=== PATIENT | female | born 1985 | race African-American/Black ===

== ENCOUNTER 2018-02-17 14:57 | Emergency (ER) | payer BC ==
[2018-02-17] MEDS ORDERED: NORMAL SALINE 1000 ML 1,000 ML IV ONE (15:41)
--- NOTE | 2018-02-17 15:41 | ER Document Report ---
ED Medical Screen (RME) - General Chief Complaint: Abdominal Pain Stated Complaint: ABDOMINAL PAIN Time Seen by Provider: 02/17/18 15:25 Notes: Patient is a 32-year-old female that presents to the emergency department for chief complaint of right-sided abdominal pain that started over the weekend. Associated nausea but no vomiting, has had diarrhea. ROS: Other than noted above, the 12 point review of systems was reviewed with the patient and were negative, all pertinent findings are included in the HPI. PHYSICAL EXAMINATION: Vital signs reviewed. GENERAL: Well-appearing, well-nourished and in no acute distress. HEAD: Atraumatic, normocephalic. EYES: Pupils equal round extraocular movements intact, conjunctiva are normal. ENT: Nares patent NECK: Normal range of motion CV: Heart regular rate and rhythm LUNGS: No respiratory distress Musculoskeletal: Normal range of motion NEUROLOGICAL: Normal speech PSYCH: Normal mood, normal affect. MDM: Patient seen and examined for rapid initial assessment. Vital signs reviewed. A comprehensive ED assessment and evaluation of the patient, analysis of test results and completion of the medical decision making process will be conducted by additional ED providers. *Note is created using voice recognition software and may contain spelling, syntax or grammatical errors. COUNTRY TRAVELED TO/FROM: [place] - Related Data Allergies/Adverse Reactions: No Known Allergies Allergy (Unverified 02/17/18 14:59) Past Medical History Renal/ Medical History: Denies: Hx Peritoneal Dialysis Physical Exam - Vital signs Vitals: Temp Pulse Resp BP Pulse Ox 98.2 F 91 16 127/84 H 100 02/17/18 15:03 02/17/18 15:03 02/17/18 15:03 02/17/18 15:03 02/17/18 15:03 Course - Vital Signs Vital signs: Temp Pulse Resp BP Pulse Ox 98.2 F 91 16 127/84 H 100 02/17/18 15:03 02/17/18 15:03 02/17/18 15:03 02/17/18 15:03 02/17/18 15:03
[2018-02-17] MEDS ORDERED: MORPHINE SULFATE 10 MG/ML INJ IV ONE ×2 (15:42→17:01)
[2018-02-17] MEDS ORDERED: ONDANSETRON HCL INJ/PF 4 MG/2 ML SDV IV ONE (15:43)
[2018-02-17 16:43] LABS: ABSOLUTE BASOPHILS # (AUTO) 0.1 10^3/uL (0.0-0.2); ABSOLUTE EOSINOPHILS # (AUTO) 0.6 10^3/uL (0.0-0.6); ABSOLUTE LYMPHOCYTES (AUTO) 2.1 10^3/uL (0.5-4.7); ABSOLUTE MONOCYTES (AUTO) 0.9 10^3/uL (0.1-1.4); ABSOLUTE NEUT (AUTO) 9.3 10^3/uL (1.7-8.2); EOSINOPHILS % (AUTO) 4.5 % (0-6); HEMATOCRIT 33.6 % (36.0-47.0); HEMOGLOBIN 10.5 g/dL (12.0-15.5); LYMPHOCYTES % (AUTO) 16.3 % (13-45); MEAN CORPUSCULAR HEMOGLOBIN 22.6 pg (27.0-33.4); MEAN CORPUSCULAR HGB CONC 31.2 g/dL (32.0-36.0); MEAN CORPUSCULAR VOLUME 73 fl (80-97); MONOCYTES % (AUTO) 7.2 % (3-13); PLATELET COUNT 463 10^3/uL (150-450); RED BLOOD COUNT 4.64 10^6/uL (3.72-5.28); RED CELL DISTRIBUTION WIDTH 16.1 % (11.5-14.0); TOTAL CELLS COUNTED % (AUTO) 100 %; WHITE BLOOD COUNT 13.1 10^3/uL (4.0-10.5)
[2018-02-17 16:47] LABS: APPEARANCE,URINE CLEAR; BILIRUBIN,URINE NEGATIVE (NEGATIVE); COLOR,URINE YELLOW; GLUCOSE, URINE NEGATIVE (NEGATIVE); KETONES,URINE TRACE mg/dL (NEGATIVE); LEUKOCYTE ESTERASE,URINE NEGATIVE (NEGATIVE); NITRITE,URINE NEGATIVE (NEGATIVE); PROTEIN,URINE NEGATIVE (NEGATIVE); URINE SPECIFIC GRAVITY 1.015; UROBILINOGEN,URINE NEGATIVE mg/dL (<2.0)
[2018-02-17 17:00] LABS: ALANINE AMINOTRANSFERASE 25 U/L (9-52); ALBUMIN 4.3 g/dL (3.5-5.0); ALKALINE PHOSPHATASE 107 U/L (38-126); ANION GAP 12 (5-19); ASPARTATE AMINO TRANSFERASE 27 U/L (14-36); BILIRUBIN,DIRECT 0.3 mg/dL (0.0-0.4); BILIRUBIN,TOTAL 0.6 mg/dL (0.2-1.3); BLOOD UREA NITROGEN 8 mg/dL (7-20); CALCIUM 9.7 mg/dL (8.4-10.2); CARBON DIOXIDE 27 mmol/L (22-30); CHLORIDE 100 mmol/L (98-107); GLUCOSE 83 mg/dL (75-110); LIPASE 31.6 U/L (23-300); POTASSIUM 4.2 mmol/L (3.6-5.0); SODIUM 139.1 mmol/L (137-145); TOTAL PROTEIN 7.5 g/dL (6.3-8.2)
--- NOTE | 2018-02-17 17:06 | ER Document Report ---
ED GI/ - General Chief Complaint: Abdominal Pain Stated Complaint: ABDOMINAL PAIN Time Seen by Provider: 02/17/18 15:25 Mode of Arrival: Ambulatory Information source: Patient Notes: Patient presents complaining of abdominal pain for the past 3 days. Patient does report diarrhea 2 days ago but none since then. Patient denies any fever nausea or vomiting. Patient denies any urinary symptoms. COUNTRY TRAVELED TO/FROM: [facility] Patient complains to provider of: Abdominal pain. No: Diarrhea, Vomiting Onset: Other - 3 days Timing/Duration: Persistent Quality of pain: Achy Pain Level: 3 Location: RUQ, Other - Umbilical Vaginal bleeding (Compared to normal period): None Associated symptoms: denies: Constipation, Diarrhea, Loss of appetite, Nausea, Urinary hesitancy, Urinary frequency, Urinary retention, Urinary urgency, Vaginal discharge, Vomiting Exacerbated by: Denies Relieved by: Denies Similar symptoms previously: No Recently seen / treated by doctor: No - Related Data Allergies/Adverse Reactions: No Known Allergies Allergy (Unverified 02/17/18 14:59) Past Medical History - General Information source: Patient - Social History Smoking Status: Current Every Day Smoker Smoking Education Provided: Yes Frequency of alcohol use: None Drug Abuse: None 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 denies: Fever, Recent illness EENT: No symptoms reported Cardiovascular: No symptoms reported. denies: Chest pain Respiratory: No symptoms reported. denies: Cough, Short of breath Gastrointestinal: Abdominal pain. denies: Diarrhea, Nausea, Constipation, Blood streaked bowels, Poor appetite Genitourinary: No symptoms reported. denies: Dysuria, Flank pain Female Genitourinary: No symptoms reported. denies: , Vaginal discharge , Vaginal bleeding Musculoskeletal: No symptoms reported. denies: Back pain Skin: No symptoms reported Hematologic/Lymphatic: No symptoms reported Neurological/Psychological: No symptoms reported Physical Exam - Vital signs Vitals: Temp Pulse Resp BP Pulse Ox 98.2 F 91 16 127/84 H 100 02/17/18 15:03 02/17/18 15:03 02/17/18 15:03 02/17/18 15:03 02/17/18 15:03 - General General appearance: Appears well, Alert In distress: None - HEENT Head: Normocephalic, Atraumatic Eyes: Normal Conjunctiva: Normal Nasal: Normal Mouth/Lips: Normal Mucous membranes: Normal Neck: Normal, Supple. No: Lymphadenopathy - Respiratory Respiratory status: No respiratory distress Chest status: Nontender Breath sounds: Normal Chest palpation: Normal - Cardiovascular Rhythm: Regular Heart sounds: S1 appreciated, S2 appreciated Murmur: No - Abdominal Inspection: Other - umbilical hernia Bowel sounds: Normal Tenderness: Tender - umilical area, RUQ, suprapubic area, Guarding Organomegaly: No organomegaly - Back Back: Normal, Nontender. No: CVA tenderness - Extremities General upper extremity: Normal inspection, Normal ROM General lower extremity: Normal inspection, Normal ROM - Neurological Neuro grossly intact: Yes Cognition: Normal Claudia Coma Scale Eye Opening: Spontaneous [place] Coma Scale Verbal: Oriented [place] Coma Scale Motor: Obeys Commands Claudia Coma Scale Total: 15 - Psychological Associated symptoms: Normal affect, Normal mood - Skin Skin Temperature: Warm Skin Moisture: Dry Skin Color: Normal Course - Re-evaluation Re-evalutation: 02/17/18 19:[address] report findings. Patient states that she has a known massive tissue to the upper abdomen that she has known about in the past and states that this is likely attributed to a repaired hernia that she had as a child. Patient states that the doctor did notice this mass of tissue when she was and that she had ultrasound imaging performed of this area. - Vital Signs Vital signs: Temp Pulse Resp BP Pulse Ox 99.0 F 84 16 112/68 100 02/17/18 21:34 02/17/18 21:34 02/17/18 15:03 02/17/18 21:34 02/17/18 21:34 - Laboratory Result Diagrams: 02/17/18 16:25 02/17/18 16:25 Laboratory results interpreted by me: 02/17/18 02/17/18 16:25 16:25 WBC 13.1 H Hgb 10.5 L Hct 33.6 L MCV 73 L MCH 22.6 L MCHC 31.2 L RDW 16.1 H Plt Count 463 H Absolute Neutrophils 9.3 H Urine Ketones TRACE H 02/17/18 21:24 Labs- Entire Visit 02/17/18 02/17/18 02/17/18 16:25 16:25 16:25 WBC 13.1 H RBC 4.64 Hgb 10.5 L Hct 33.6 L MCV 73 L MCH 22.6 L MCHC 31.2 L RDW 16.1 H Plt Count 463 H Seg Neutrophils % 71.0 Lymphocytes % 16.3 Monocytes % 7.2 Eosinophils % 4.5 Basophils % 1.0 Absolute Neutrophils 9.3 H Absolute Lymphocytes 2.1 Absolute Monocytes 0.9 Absolute Eosinophils 0.6 Absolute Basophils 0.1 Sodium 139.1 Potassium 4.2 Chloride 100 Carbon Dioxide 27 Anion Gap 12 BUN 8 Creatinine 0.78 Est GFR ( Amer) > 60 Est GFR (Non-Af Amer) > 60 Glucose 83 Calcium 9.7 Total Bilirubin 0.6 Direct Bilirubin 0.3 Neonat Total Bilirubin Not Reportable Neonat Direct Bilirubin Not Reportable Neonat Indirect Bili Not Reportable AST 27 ALT 25 Alkaline Phosphatase 107 Total Protein 7.5 Albumin 4.3 Lipase 31.6 Urine Color YELLOW Urine Appearance CLEAR Urine pH 5.0 Ur Specific [place] 1.015 Urine Protein NEGATIVE Urine Glucose (UA) NEGATIVE Urine Ketones TRACE H Urine Blood NEGATIVE Urine Nitrite NEGATIVE Urine Bilirubin NEGATIVE Urine Urobilinogen NEGATIVE Ur Leukocyte Esterase NEGATIVE Urine WBC (Auto) 1 Urine RBC (Auto) 1 Squamous Epi Cells Auto 1 Urine Mucus (Auto) FEW Urine Ascorbic Acid NEGATIVE Urine HCG, Qual NEGATIVE - Diagnostic Test Radiology reviewed: Reports reviewed Discharge - Discharge Clinical Impression: Colitis Abdominal pain Qualifiers: Abdominal location: unspecified location Qualified Code(s): R10.9 - Unspecified abdominal pain Uterine fibroid Qualifiers: Uterine leiomyoma location: unspecified location Qualified Code(s): D25.9 - Leiomyoma of uterus, unspecified Condition: Stable Disposition: HOME, SELF-CARE Instructions: Abdominal Pain ([facility]), Ciprofloxacin ([facility]), Colitis, Nonspecific ( [facility]), Growth or Mass, Pending Workup ([facility]), Metronidazole ([facility]) Additional Instructions: Return immediately for any new or worsening symptoms Followup with your primary care provider, call tomorrow to make a followup appointment Follow-up with a general surgeon for further evaluation of possible mass to abdomen Return for any increased pain, fever, vomiting, blood in stool or any other concerning symptoms Prescriptions: Ciprofloxacin HCl [Cipro 500 mg Tablet] 500 mg PO BID #20 tablet Metronidazole [Flagyl 500 mg Tablet] 500 mg PO TID #30 tablet Forms: Smoking Cessation Education, Return to Work Referrals: [facility] [Provider Group] - Follow up tomorrow
--- NOTE | 2018-02-17 18:02 | RADIOLOGY REPORT (SQ) ---
EXAM DESCRIPTION: CT ABD/PELVIS WITH IV ONLY COMPLETED DATE/TIME: 02/17/2018 5:25 pm REASON FOR STUDY: right sided abdominal pain COMPARISON: None. TECHNIQUE: CT scan of the abdomen and pelvis performed using helical scanning technique with dynamic intravenous contrast injection. No oral contrast. Images reviewed with lung, soft tissue, and bone windows. Reconstructed coronal and sagittal MPR images reviewed. Delayed images for evaluation of the urinary system also acquired. All images stored on PACS. All CT scanners at this facility use dose modulation, iterative reconstruction, and/or weight based d osing when appropriate to reduce radiation dose to as low as reasonably achievable (ALARA). [facility]: Dose Right [facility]: CareDose [facility]: Dose Right [facility]: Teradose 4D [facility]: Metaforic CONTRAST TYPE AND DOSE: contrast/concentration: Isovue 350.00 mg/ml; Total Contrast Delivered: 83.0 ml; Total Saline Delivered: 68.0 ml RENAL FUNCTION: None required. The patient is less than 50 years old. RADIATION DOSE: CT Rad equipment meets quality standard of care and radiation dose reduction techniq ues were employed. CTDIvol: 8.3 - 11.8 mGy. DLP: 1098 mGy-cm.. LIMITATIONS: None. FINDINGS: LOWER CHEST: No significant findings. No nodules or infiltrates. LIVER: Normal size. No masses. No dilated ducts. SPLEEN: Normal size. No focal lesions. PANCREAS: No masses. No significant calcifications. No adjacent inflammation or peripancreatic fluid collections. Pancreatic duct not dilated. GALLBLADDER: Status post cholecystectomy ADRENAL GLANDS: No significant masses or asymmetry. RIGHT KIDNEY AND URETER: No solid masses. No significant calcifications. No hydronephrosis or hyd roureter. LEFT KIDNEY AND URETER: No solid masses. No significant calcifications. No hydronephrosis or hydr oureter. AORTA AND VESSELS: No aneurysm. No dissection. Renal arteries, SMA, celiac without stenosis. RETROPERITONEUM: No retroperitoneal adenopathy, hemorrhage or masses. BOWEL AND PERITONEAL CAVITY: There is thickening of the aguilar of a short segment of proximal transver se colon with associated edematous or inflammatory changes in the adjacent mesenteric fat. The appea franky is most consistent with a focal colitis. Follow-up is recommended to exclude an underlying mas s. APPENDIX: Normal. PELVIS: There is a 4.7 x 3.1 cm in diameter mass inseparable from the uterus on the left. This could represent a uterine mass such as a fibroid or could be ovarian in etiology. Clinical correlation is recommended. Pelvic ultrasound may be of value for further evaluation. No free fluid. Normal bladd er. ABDOMINAL WALL: No masses. No hernias. BONES: No significant or acute findings. OTHER: No other significant finding. IMPRESSION: Findings consistent with colitis involving a short segment of transverse colon as noted above. Follow-up is recommended to exclude an underlying mass. Mass lesion inseparable from the [place] as noted above which could be uterine or ovarian in etiology. Pelvic ultrasound may be of value for further evaluation. Other findings as noted above TECHNICAL DOCUMENTATION: JOB ID: [id number] Quality ID # [id number]: Final reports with documentation of one or more dose reduction techniques (e.g., Au tomated exposure control, adjustment of the mA and/or kV according to patient size, use of iterative reconstruction technique) 2010 [employer]- All Rights Reserved Reading location - IP/workstation name: [email or web address]
[2018-02-17] MEDS ORDERED: METRONIDAZOLE 500 MG TABLET PO ONE (18:40)
[2018-02-17] MEDS ORDERED: CIPROFLOXACIN HCL 500 MG TABLET PO ONE (18:40)
--- NOTE | 2018-02-17 21:07 | RADIOLOGY REPORT (SQ) ---
EXAM DESCRIPTION: US PELVIS COMPLETED DATE/TME: 02/17/2018 18:35 CLINICAL HISTORY: 32 years, Female, pelvic pain, eval ?uterine mass Findings: Transabdominal pelvic ultrasound is performed and images submitted for review. Compared to CT abdomen pelvis from the same day. Uterus is anteverted and measures 10.8 x 4.4 x 6.1 cm. It demonstrates a hypoechoic fibroid in the lower uterine segment measuring 3.6 x 2.5 x 3.2 cm. Endometrium measures 5 mm in thickness. Right ovary measures 3.5 x 2.3 x 2.8 cm. Left ovary measures 4.9 x 3.4 x 4.2 cm. Vascular flow is preserved within both ovaries on color and spectral Doppler imaging. No free fluid in the cul-de-sac. IMPRESSION: Uterine fibroids. No abnormal adnexal masses.
[2018-02-17 22:05] VITALS: BP 112/68
== END 2018-02-17 21:38 | disposition home or self-care (01) ==
LOC: ER 14:57
DX: D25.9 Leiomyoma of uterus, unspecified (principal); K52.9 Noninfective gastroenteritis and colitis, unspecified; R10.9 Unspecified abdominal pain; R19.7 Diarrhea, unspecified; F17.200 Nicotine dependence, unspecified, uncomplicated
CPT/HCPCS: 99284; 96361; 96374; 96375; 36415; 83690; 85025; 81025; 80053; 81001; 76856; 93976; 74177; J2270; J2405; J7030

== ENCOUNTER 2018-09-23 15:24 | Emergency (ER) | payer BC ==
[2018-09-23 15:37] VITALS: BP 137/83
[2018-09-23] MEDS ORDERED: IPRATROPIUM/ALBUTEROL 0.5-2.5 MG/3 ML AMPUL NEB ONE (15:43)
[2018-09-23] MEDS ORDERED: ONDANSETRON 4 MG TAB.RAPDIS PO ONE (15:43)
[2018-09-23] MEDS ORDERED: ASPIRIN 81 MG TABLET, CHEWABLE PO ONE (15:43)
--- NOTE | 2018-09-23 15:44 | ER Document Report ---
ED Medical Screen (RME) - General Chief Complaint: Shortness Of Breath Stated Complaint: SHORTNESS OF BREATH Time Seen by Provider: 09/23/18 15:42 Mode of Arrival: Ambulatory Information source: Patient Notes: Patient reports occasionally productive cough that started yesterday with shortness of breath. She also developed sore throat yesterday. Patient does complain of nausea. No vomiting, no fever. Patient reports chest pain that started around 2:00 today. I have greeted and performed a rapid initial assessment of this patient. A comprehensive ED assessment and evaluation of the patient, analysis of test results and completion of the medical decision making process will be conducted by additional ED providers. TRAVEL OUTSIDE OF THE [place] IN LAST 30 DAYS: No COUNTRY TRAVELED TO/FROM: [place] - Related Data Allergies/Adverse Reactions: No Known Allergies Allergy (Verified 09/23/18 15:25) Past Medical History Renal/ Medical History: Denies: Hx Peritoneal Dialysis Past Surgical History: Reports: Hx Cholecystectomy Physical Exam - Vital signs Vitals: Temp Pulse Resp BP Pulse Ox 99.1 F 86 20 137/83 H 99 09/23/18 15:34 09/23/18 15:34 09/23/18 15:34 09/23/18 15:34 09/23/18 15:34 - Respiratory Respiratory status: No respiratory distress Breath sounds: Nonproductive cough, Rhonchi Course - Vital Signs Vital signs: Temp Pulse Resp BP Pulse Ox 99.1 F 86 20 137/83 H 99 09/23/18 15:34 09/23/18 15:34 09/23/18 15:34 09/23/18 15:34 09/23/18 15:34
[2018-09-23 16:28] LABS: ABSOLUTE EOSINOPHILS # (AUTO) 0.5 10^3/uL (0.0-0.6); ABSOLUTE MONOCYTES (AUTO) 0.6 10^3/uL (0.1-1.4); ABSOLUTE NEUT (AUTO) 7.3 10^3/uL (1.7-8.2); BASOPHILS % (AUTO) 0.3 % (0-2); HEMATOCRIT 29.1 % (36.0-47.0); HEMOGLOBIN 8.8 g/dL (12.0-15.5); LYMPHOCYTES % (AUTO) 10.9 % (13-45); MEAN CORPUSCULAR HEMOGLOBIN 19.7 pg (27.0-33.4); MEAN CORPUSCULAR HGB CONC 30.2 g/dL (32.0-36.0); MEAN CORPUSCULAR VOLUME 65 fl (80-97); MONOCYTES % (AUTO) 5.9 % (3-13); PLATELET COUNT 442 10^3/uL (150-450); RED BLOOD COUNT 4.47 10^6/uL (3.72-5.28); RED CELL DISTRIBUTION WIDTH 18.6 % (11.5-14.0); SEGMENTED NEUTROPHILS % (AUTO) 77.9 % (42-78); TOTAL CELLS COUNTED % (AUTO) 100 %; WHITE BLOOD COUNT 9.4 10^3/uL (4.0-10.5)
--- NOTE | 2018-09-23 16:39 | RADIOLOGY REPORT (SQ) ---
EXAM DESCRIPTION: CHEST 2 VIEWS COMPLETED DATE/TIME: 09/23/2018 4:26 pm REASON FOR STUDY: cough, cp COMPARISON: None. EXAM PARAMETERS: NUMBER OF VIEWS: two views TECHNIQUE: Digital Frontal and Lateral radiographic views of the chest acquired. RADIATION DOSE: NA LIMITATIONS: none FINDINGS: LUNGS AND PLEURA: No opacities, masses or pneumothorax. No pleural effusion. MEDIASTINUM AND HILAR STRUCTURES: No masses or contour abnormalities. HEART AND VASCULAR STRUCTURES: Heart normal size. No evidence for failure. BONES: No acute findings. HARDWARE: Clips right upper quadrant post cholecystectomy OTHER: No other significant finding. IMPRESSION: NO ACUTE RADIOGRAPHIC FINDING IN THE CHEST. TECHNICAL DOCUMENTATION: JOB ID: [id number] [employer]- All Rights Reserved Reading location - IP/workstation name: [email or web address]
[2018-09-23 16:52] LABS: ALANINE AMINOTRANSFERASE 21 U/L (9-52); ALBUMIN 4.3 g/dL (3.5-5.0); ALKALINE PHOSPHATASE 88 U/L (38-126); ANION GAP 7 (5-19); ASPARTATE AMINO TRANSFERASE 29 U/L (14-36); BILIRUBIN,DIRECT 0.2 mg/dL (0.0-0.4); BILIRUBIN,TOTAL 0.4 mg/dL (0.2-1.3); BLOOD UREA NITROGEN 5 mg/dL (7-20); CALCIUM 9.6 mg/dL (8.4-10.2); CARBON DIOXIDE 27 mmol/L (22-30); CHLORIDE 105 mmol/L (98-107); CREATINE KINASE 175 U/L (30-135); GLUCOSE 85 mg/dL (75-110); POTASSIUM 4.4 mmol/L (3.6-5.0); SODIUM 139.1 mmol/L (137-145); TOTAL PROTEIN 7.3 g/dL (6.3-8.2)
[2018-09-23] MEDS ORDERED: ALBUTEROL SULFATE HFA (90 MCG/PUFF) 8 GM MDI (1 MDI/ER DISP) IH ONE (18:40)
--- NOTE | 2018-09-23 18:45 | ER Document Report ---
ED General - General Chief Complaint: Shortness Of Breath Stated Complaint: SHORTNESS OF BREATH Time Seen by Provider: 09/23/18 15:42 Mode of Arrival: Ambulatory Notes: Patient is a 33-year-old female that presents to the emergency department for chief complaint of cough and shortness of breath. Patient states that yesterday evening she was having a cough and felt congested, then today she felt more short of breath both tightness in her chest associated with the cough. She was concerned she may have pneumonia so she went to come to the emergency department to be checked out. She denies history of asthma. She states she has some wheezing with this though. She denies any fevers, chills, night sweats, nausea, vomiting or abdominal pain at this time. Denies any dysuria or hematuria. Past Medical History: Seasonal allergies Past Surgical History: Cholecystectomy Social History: Admits to smoking cigarettes, denies alcohol or drug use. Family History: Reviewed and noncontributory for presenting illness Allergies: Reviewed, see documented allergy list. REVIEW OF SYSTEMS: Other than noted above, the 12 point review of systems was reviewed with the patient and were negative, all pertinent findings are included in the HPI. PHYSICAL EXAMINATION: Vital signs reviewed, nursing noted reviewed. GENERAL: Well-appearing, well-nourished and in no acute distress. HEAD: Atraumatic, normocephalic. EYES: Eyes appear normal, extraocular movements intact, sclera anicteric, conjunctiva are normal. ENT: nares patent, oropharynx clear without exudates. Moist mucous membranes. NECK: Normal range of motion, supple without lymphadenopathy LUNGS: Faint expiratory wheezing noted throughout all lung porras, no acute respiratory distress, no increased work of breathing HEART: Regular rate and rhythm without murmurs ABDOMEN: Soft, nontender, normoactive bowel sounds. No rebound, guarding, or rigidity. No masses appreciated. EXTREMITIES: Nontender, good range of motion, no pitting or edema. NEUROLOGICAL: No focal neurological deficits. Moves all extremities spontaneously Motor and sensory grossly intact on exam. PSYCH: Normal mood, normal affect. SKIN: Warm, Dry, normal turgor, no rashes or lesions noted on exposed skin TRAVEL OUTSIDE OF THE [place] IN LAST 30 DAYS: No COUNTRY TRAVELED TO/FROM: [place] - Related Data Allergies/Adverse Reactions: No Known Allergies Allergy (Verified 09/23/18 15:25) Past Medical History - General Information source: Patient - Social History Smoking Status: Current Every Day Smoker Chew tobacco use (# tins/day): No Frequency of alcohol use: None Drug Abuse: None Family History: Reviewed & Not Pertinent Patient has suicidal ideation: No Patient has homicidal ideation: No Renal/ Medical History: Denies: Hx Peritoneal Dialysis Past Surgical History: Reports: Hx Cholecystectomy Physical Exam - Vital signs Vitals: Temp Pulse Resp BP Pulse Ox 99.1 F 86 20 137/83 H 99 09/23/18 15:34 09/23/18 15:34 09/23/18 15:34 09/23/18 15:34 09/23/18 15:34 Course - Re-evaluation Re-evalutation: Patient seen and examined vital signs reviewed. Laboratory data and/or imaging were ordered as appropriate for the patient's presenting symptoms and complaint, with consideration of any critical or life threatening conditions that may be associated with their obtained history and exam as noted above. Patient was treated with DuoNeb breathing treatment, Motrin Results were reviewed when available and demonstrated unremarkable work-up, negative chest x-ray, normal EKG, blood work unremarkable as well The patient was re-evaluated and was stable Evaluation was most consistent with URI with bronchospasm, will prescribe the patient albuterol, and prednisone and have her follow-up with her primary care, given referral. Results were discussed with the patient at this point, after careful conside ration I feel that that patient can be discharged from the emergency department, the patient was educated treatments and reasons to return to the emergency department based on their presumed diagnosis as noted above, they were advised to followup with a primary care physician in 2-3 days. Patient was agreeable to plan of care. *Note is created using voice recognition software and may contain spelling, syntax or grammatical errors. Laboratory 09/23/18 09/23/18 09/23/18 16:05 16:05 16:05 WBC 9.4 RBC 4.47 Hgb 8.8 L Hct 29.1 L MCV 65 L MCH 19.7 L MCHC 30.2 L RDW 18.6 H Plt Count 442 Seg Neutrophils % 77.9 Lymphocytes % 10.9 L Monocytes % 5.9 Eosinophils % 5.0 Basophils % 0.3 Absolute Neutrophils 7.3 Absolute Lymphocytes 1.0 Absolute Monocytes 0.6 Absolute Eosinophils 0.5 Absolute Basophils 0.0 Sodium 139.1 Potassium 4.4 Chloride 105 Carbon Dioxide 27 Anion Gap 7 BUN 5 L Creatinine 0.74 Est GFR ( Amer) > 60 Est GFR (Non-Af Amer) > 60 Glucose 85 Calcium 9.6 Total Bilirubin 0.4 Direct Bilirubin 0.2 Neonat Total Bilirubin Not Reportable Neonat Direct Bilirubin Not Reportable Neonat Indirect Bili Not Reportable AST 29 ALT 21 Alkaline Phosphatase 88 Creatine Kinase 175 H Troponin I < 0.012 Total Protein 7.3 Albumin 4.3 Serum HCG, Qual Group A Strep Rapid 09/23/18 09/23/18 16:05 16:05 WBC RBC Hgb Hct MCV MCH MCHC RDW Plt Count Seg Neutrophils % Lymphocytes % Monocytes % Eosinophils % Basophils % Absolute Neutrophils Absolute Lymphocytes Absolute Monocytes Absolute Eosinophils Absolute Basophils Sodium Potassium Chloride Carbon Dioxide Anion Gap BUN Creatinine Est GFR ( Amer) Est GFR (Non-Af Amer) Glucose Calcium Total Bilirubin Direct Bilirubin Neonat Total Bilirubin Neonat Direct Bilirubin Neonat Indirect Bili AST ALT Alkaline Phosphatase Creatine Kinase Troponin I Total Protein Albumin Serum HCG, Qual NEGATIVE Group A Strep Rapid NEGATIVE Chest X-Ray 09/23/18 15:42 IMPRESSION: NO ACUTE RADIOGRAPHIC FINDING IN THE CHEST. - Vital Signs Vital signs: Temp Pulse Resp BP Pulse Ox 99.1 F 86 20 137/83 H 99 09/23/18 15:34 09/23/18 15:34 09/23/18 15:34 09/23/18 15:34 09/23/18 15:34 - Laboratory Result Diagrams: 09/23/18 16:05 09/23/18 16:05 Laboratory results interpreted by me: 09/23/18 09/23/18 16:05 16:05 Hgb 8.8 L Hct 29.1 L MCV 65 L MCH 19.7 L MCHC 30.2 L RDW 18.6 H Lymphocytes % 10.9 L BUN 5 L Creatine Kinase 175 H - EKG Interpretation by Me Additional EKG results interpreted by me: EKG demonstrates sinus rhythm with a ventricular rate of 83 bpm, normal axis, normal intervals, no evidence of acute ischemia in this EKG. Discharge - Discharge Clinical Impression: Bronchospasm URI (upper respiratory infection) Qualifiers: URI type: unspecified URI Qualified Code(s): J06.9 - Acute upper respiratory infection, unspecified Condition: Stable Disposition: HOME, SELF-CARE Instructions: Upper Respiratory Illness ([facility]) Prescriptions: Prednisone [Deltasone 10 mg Tablet] 40 mg PO DAILY #20 tablet Referrals: CELESTINE BERRIOS MD [ACTIVE STAFF] - Follow up in 3-5 days (primary care. )
--- NOTE | 2018-09-23 23:16 | EKG REPORT ---
SEVERITY:- OTHERWISE NORMAL ECG - SINUS RHYTHM LATERAL Q WAVES, PROBABLY NORMAL VARIATION : Confirmed by: Cyn Metzger 23-Sep-2018 23:14:59
== END 2018-09-23 18:45 | disposition home or self-care (01) ==
LOC: ER 15:24
DX: J98.01 Acute bronchospasm (principal); J06.9 Acute upper respiratory infection, unspecified; R06.02 Shortness of breath; R05 Cough; R07.89 Other chest pain; R06.2 Wheezing; F17.210 Nicotine dependence, cigarettes, uncomplicated
CPT/HCPCS: 93005; 94640; 99284; 36415; 87070; 87880; 82550; 84703; 85025; 80053; 84484; 71046; 93010; S0119; J3490; J7620